=== PATIENT | female | born 1970 ===

== ENCOUNTER 2016-07-31 17:11 | Emergency (ER) | payer SELFPAY ==
[~2016-07-31 17:11] MED LIST: PREMARIN
== END 2016-07-31 22:19 | disposition home or self-care (01) ==
LOC: ER 17:11
DX: K08.89 Other specified disorders of teeth and supporting structures (principal); Z90.710 Acquired absence of both cervix and uterus; Z88.0 Allergy status to penicillin; Z88.5 Allergy status to narcotic agent; Z79.899 Other long term (current) drug therapy
CPT/HCPCS: 99282